=== PATIENT | female | born 1970 | race Caucasian/White ===

== ENCOUNTER 2016-11-10 14:08 | Emergency (ER) | payer MEDICARE, MEDICAID ==
--- NOTE | 2016-11-10 14:33 | EDM.PDOC ---
ED HPI GENERAL MEDICAL PROBLEM - General Chief Complaint: Lower Extremity Injury/Pain Stated Complaint: ANKLE INJURY left Time Seen by Provider: 11/10/16 14:13 Source of Information: Reports: Patient, EMS History Limitations: Reports: No Limitations - History of Present Illness INITIAL COMMENTS - FREE TEXT/NARRATIVE: Patient here with history of falling last night at her parents. She is unable to walk or support her weight today due to pain in her left ankle. History of prior femur fracture and left ankle surgical repair. History of muscular dystrophy. Has mild learning disability. Has history of HTN. Denies any abdominal surgeries. She denies headache, chest pain, SOB, change in LOC, no blood in stool, urine, emesis. No nausea or vomiting. Onset Date: 11/09/16 Onset Time: 20:00 Location: Reports: Lower Extremity, Left Quality: Reports: Ache, Sharp Severity: Moderate Improves with: Reports: Cold Therapy Worsens with: Reports: Movement Associated Symptoms: Reports: No Other Symptoms - Related Data Allergies Allergy/AdvReac Type Severity Reaction Status Date / Time No Known Allergies Allergy Verified 11/10/16 14:20 Home Meds: Home Meds Ergocalciferol (Vitamin D2) [Vitamin D] 400 unit PO BID 11/10/16 [History] Fluticasone Propionate [Flonase] 2 dose NASBOTH DAILY 11/10/16 [History] Ibuprofen 200 mg PO Q4H PRN 11/10/16 [History] Loratadine [Claritin] 10 mg PO DAILY 11/10/16 [History] Losartan [Cozaar] 50 mg PO DAILY 11/10/16 [History] Multivitamin [Multivitamins] 1 each PO DAILY 11/10/16 [History] Triamterene/Hydrochlorothiazid [Triamterene-HCTZ 37.5-25 MG] 1 each PO DAILY [History] Review of Systems - Review of Systems Review Of Systems: See Below Constitutional: Reports: No Symptoms Eyes: Reports: No Symptoms Ears: Reports: No Symptoms Nose: Reports: No Symptoms Mouth/Throat: Reports: No Symptoms Respiratory: Reports: No Symptoms Cardiovascular: Reports: No Symptoms GI/Abdominal: Reports: No Symptoms Genitourinary: Reports: No Symptoms Musculoskeletal: Reports: Leg Pain Skin: Reports: Bruising (left ankle) Neurological: Reports: No Symptoms Psychiatric: Reports: No Symptoms Trauma Exam - Physical Exam Exam: See Below Exam Limited By: No Limitations General Appearance: Reports: Alert, WD/WN, No Apparent Distress Head: Reports: Atraumatic, Normocephalic Neck: Reports: Non-Tender, Full Range of Motion, Normal Alignment, Normal Inspection Respiratory Exam: Reports: No Respiratory Distress, Lungs Clear, Normal Breath Sounds Cardiovascular: Reports: Normal Peripheral Pulses, Regular Rate, Rhythm, No Edema GI/Abdominal: Reports: Normal Bowel Sounds, Soft, Non-Tender Back: Reports: Full Range of Motion Extremities: Joint Effusion, Pain with Movement, Unable to Bear Weight (left ankle) Neurologic: Reports: epic ambulatory specialists II-XII nml As Tested, No Motor/Sensory Deficits, Alert , Normal Mood/Affect, Oriented x 3 - [place] Coma Score Best Eye Response ([place]): (4) Open Spontaneously Best Verbal Response ([place]): (5) Oriented Best Motor Response ([place]): (6) Obeys Commands Course - Vital Signs Last Recorded V/S: Last Vital Signs Temp 37.8 C 11/10/16 14:08 Pulse 100 11/10/16 14:08 Resp 18 11/10/16 14:08 BP 163/62 H 11/10/16 14:08 Pulse Ox 100 11/10/16 14:08 - Orders/Labs/Meds Orders: Active Orders 24 hr Category Date Time Status Patient Status [ADT] Routine ADT 11/10/16 14:33 Cancelled Ankle Min 3V Lt [CR] Stat Exams 11/10/16 14:14 Taken - Re-Assessments/Exams Free Text/Narrative Re-Assessment/Exam: 11/10/16 15:41 Drs. Moe and Cyndi contacted regarding patient. [facility] would accept for ortho, and Cyndi will see in the ED upon arrival for reduction and splinting. Surgery likely Departure - Departure Time of Disposition: 15:45 Disposition: DC/Tfer to Other 70 Condition: good Clinical Impression: Bimalleolar fracture of left ankle, Subluxation of left ankle joint, initial encounter - Discharge Information Forms: Interfacility Transfer EMTALA - My Orders Last 24 Hours: My Active Orders 11/10/16 14:14 Ankle Min 3V Lt [CR] Stat 11/10/16 14:33 Patient Status [ADT] Routine (Cancelled) - Assessment/Plan Last 24 Hours: My Active Orders 11/10/16 14:14 Ankle Min 3V Lt [CR] Stat 11/10/16 14:33 Patient Status [ADT] Routine (Cancelled)
[2016-11-10 15:50] VITALS: BP 143/62
== END 2016-11-10 16:20 | disposition other institution (70) ==
LOC: VM.ED 14:08
DX: S82.842A Displaced bimalleolar fracture of left lower leg, initial encounter for closed fracture (principal); S93.02XA Subluxation of left ankle joint, initial encounter; I10 Essential (primary) hypertension; G71.0 Muscular dystrophy; Z79.899 Other long term (current) drug therapy; X58.XXXA Exposure to other specified factors, initial encounter
CPT/HCPCS: 73610-LT; 99283-GF; 99285

== ENCOUNTER 2022-07-17 11:18 | Emergency (ER) | payer MEDICARE, MEDICAID | END 2022-07-17 13:55 | disposition home or self-care (01) | LOC: VM.ED 11:18 → MERGE 11:18 → VM.ED 13:55 | DX: R41.82 Altered mental status, unspecified (principal); I10 Essential (primary) hypertension; Z79.899 Other long term (current) drug therapy | CPT/HCPCS: 36415; 80053; 81001; 85025; 99284 ==

== ENCOUNTER 2022-12-27 23:50 | Emergency (ER) | payer MEDICARE, MEDICAID | END 2022-12-28 03:40 | disposition home or self-care (01) | LOC: VM.ED 23:50 | DX: S82.031A Displaced transverse fracture of right patella, initial encounter for closed fracture (principal); I10 Essential (primary) hypertension; E11.9 Type 2 diabetes mellitus without complications; Z79.899 Other long term (current) drug therapy; X50.1XXA Overexertion from prolonged static or awkward postures, initial encounter | CPT/HCPCS: 73560-RT; 99283 ==

== ENCOUNTER 2023-01-15 11:57 | Inpatient (IN) | payer MEDICARE, MEDICAID ==
[2023-01-15] MEDS ORDERED: Polyethylene Glycol 3350 Powder 17 GM Packet PO PRN (16:11)
[2023-01-15] MEDS ORDERED: Naloxone 0.4 MG/ML SDV NAS PRN (16:11)
[2023-01-15] MEDS ORDERED: Ibuprofen 200 MG Tab PO PRN (16:20)
[2023-01-15] MEDS: oxyCODONE 5 MG Tab (OWN SUPPLY) PO PRN ×2 (17:04→20:56)
[2023-01-15] MEDS: Losartan 50 MG Tab (OWN SUPPLY) PO SCH (17:06)
[2023-01-15] MEDS: TRIAMTERENE PO SCH (17:06)
[2023-01-15] MEDS: HYDROCHLOROTHIAZIDE PO SCH (17:06)
[2023-01-15] MEDS: LORATADINE 10 MG PO SCH (17:07)
[2023-01-15] MEDS: metFORMIN 500 MG Tab (OWN SUPPLY) PO SCH (17:49)
[2023-01-15] MEDS: Sennosides/Docusate Sodium 50-8.6 MG Tab PO SCH (20:56)
[2023-01-15] MEDS: EZETIMIBE 10 MG PO SCH (20:56)
[2023-01-16] MEDS: oxyCODONE 5 MG Tab (OWN SUPPLY) PO PRN ×4 (01:36→20:55)
[2023-01-16] MEDS: metFORMIN 500 MG Tab (OWN SUPPLY) PO SCH ×2 (12:26→18:21)
[2023-01-16] MEDS: FLUTICASONE PROPIONATE NASBOTH SCH (12:27)
[2023-01-16] MEDS: Aspirin 325 MG Tab.EC PO SCH (12:32)
[2023-01-16] MEDS: Cholecalciferol (Vitamin D3) 10 MCG Tab PO SCH (12:32)
[2023-01-16] MEDS: Calcium Carbonate 750 MG Tab.Chew PO SCH (12:32)
[2023-01-16] MEDS: Sennosides/Docusate Sodium 50-8.6 MG Tab PO SCH ×2 (12:32→20:55)
[2023-01-16] MEDS: Multivitamin Tab PO SCH (12:32)
[2023-01-16] MEDS: HYDROCHLOROTHIAZIDE PO SCH (18:21)
[2023-01-16] MEDS: Losartan 50 MG Tab (OWN SUPPLY) PO SCH (18:21)
[2023-01-16] MEDS: TRIAMTERENE PO SCH (18:21)
[2023-01-16] MEDS: LORATADINE 10 MG PO SCH (18:22)
[2023-01-16] MEDS: EZETIMIBE 10 MG PO SCH (23:47)
[2023-01-17] MEDS: oxyCODONE 5 MG Tab (OWN SUPPLY) PO PRN ×3 (04:55→20:11)
[2023-01-17] MEDS: FLUTICASONE PROPIONATE NASBOTH SCH (12:15)
[2023-01-17] MEDS: Sennosides/Docusate Sodium 50-8.6 MG Tab PO SCH ×2 (12:16→20:10)
[2023-01-17] MEDS: Cholecalciferol (Vitamin D3) 10 MCG Tab PO SCH (12:16)
[2023-01-17] MEDS: Calcium Carbonate 750 MG Tab.Chew PO SCH (12:16)
[2023-01-17] MEDS: metFORMIN 500 MG Tab (OWN SUPPLY) PO SCH ×2 (12:16→18:07)
[2023-01-17] MEDS: Multivitamin Tab PO SCH (12:16)
[2023-01-17] MEDS: Aspirin 325 MG Tab.EC PO SCH (12:16)
[2023-01-17] MEDS: HYDROCHLOROTHIAZIDE PO SCH (18:07)
[2023-01-17] MEDS: Losartan 50 MG Tab (OWN SUPPLY) PO SCH (18:07)
[2023-01-17] MEDS: TRIAMTERENE PO SCH (18:07)
[2023-01-17] MEDS: LORATADINE 10 MG PO SCH (18:07)
[2023-01-17] MEDS: EZETIMIBE 10 MG PO SCH (20:11)
[2023-01-18] MEDS: FLUTICASONE PROPIONATE NASBOTH SCH (12:21)
[2023-01-18] MEDS: Calcium Carbonate 750 MG Tab.Chew PO SCH (12:22)
[2023-01-18] MEDS: Cholecalciferol (Vitamin D3) 10 MCG Tab PO SCH (12:22)
[2023-01-18] MEDS: Multivitamin Tab PO SCH (12:22)
[2023-01-18] MEDS: metFORMIN 500 MG Tab (OWN SUPPLY) PO SCH ×2 (12:22→18:14)
[2023-01-18] MEDS: Aspirin 325 MG Tab.EC PO SCH (12:22)
[2023-01-18] MEDS: oxyCODONE 5 MG Tab (OWN SUPPLY) PO PRN ×2 (12:23→21:16)
[2023-01-18] MEDS: Sennosides/Docusate Sodium 50-8.6 MG Tab PO SCH ×2 (12:23→22:39)
[2023-01-18] MEDS: Losartan 50 MG Tab (OWN SUPPLY) PO SCH (18:13)
[2023-01-18] MEDS: LORATADINE 10 MG PO SCH (18:14)
[2023-01-18] MEDS: TRIAMTERENE PO SCH (18:14)
[2023-01-18] MEDS: HYDROCHLOROTHIAZIDE PO SCH (18:14)
[2023-01-18] MEDS: EZETIMIBE 10 MG PO SCH (21:16)
[2023-01-19] MEDS: Cholecalciferol (Vitamin D3) 10 MCG Tab PO SCH (12:02)
[2023-01-19] MEDS: Multivitamin Tab PO SCH (12:03)
[2023-01-19] MEDS: Aspirin 325 MG Tab.EC PO SCH (12:03)
[2023-01-19] MEDS: Sennosides/Docusate Sodium 50-8.6 MG Tab PO SCH ×2 (12:03→20:03)
[2023-01-19] MEDS: FLUTICASONE PROPIONATE NASBOTH SCH (12:05)
[2023-01-19] MEDS: metFORMIN 500 MG Tab (OWN SUPPLY) PO SCH ×2 (12:06→17:22)
[2023-01-19] MEDS: Calcium Carbonate 750 MG Tab.Chew PO SCH (12:07)
[2023-01-19] MEDS: LORATADINE 10 MG PO SCH (17:20)
[2023-01-19] MEDS: TRIAMTERENE PO SCH (17:20)
[2023-01-19] MEDS: HYDROCHLOROTHIAZIDE PO SCH (17:20)
[2023-01-19] MEDS: Losartan 50 MG Tab (OWN SUPPLY) PO SCH (17:21)
[2023-01-19] MEDS: EZETIMIBE 10 MG PO SCH (20:03)
[2023-01-19] MEDS: Acetaminophen 325 MG Tab PO PRN (20:04)
[2023-01-19] MEDS: oxyCODONE 5 MG Tab (OWN SUPPLY) PO PRN (23:24)
[2023-01-20] MEDS: Multivitamin Tab PO SCH (11:39)
[2023-01-20] MEDS: Aspirin 325 MG Tab.EC PO SCH (11:39)
[2023-01-20] MEDS: Sennosides/Docusate Sodium 50-8.6 MG Tab PO SCH ×2 (11:40→20:45)
[2023-01-20] MEDS: FLUTICASONE PROPIONATE NASBOTH SCH (11:40)
[2023-01-20] MEDS: Cholecalciferol (Vitamin D3) 10 MCG Tab PO SCH (11:40)
[2023-01-20] MEDS: Calcium Carbonate 750 MG Tab.Chew PO SCH (11:41)
[2023-01-20] MEDS: metFORMIN 500 MG Tab (OWN SUPPLY) PO SCH ×2 (11:41→18:33)
[2023-01-20] MEDS: oxyCODONE 5 MG Tab (OWN SUPPLY) PO PRN ×2 (11:44→23:20)
[2023-01-20] MEDS: Losartan 50 MG Tab (OWN SUPPLY) PO SCH (18:33)
[2023-01-20] MEDS: HYDROCHLOROTHIAZIDE PO SCH (18:33)
[2023-01-20] MEDS: LORATADINE 10 MG PO SCH (18:33)
[2023-01-20] MEDS: TRIAMTERENE PO SCH (18:33)
[2023-01-20] MEDS: EZETIMIBE 10 MG PO SCH (20:44)
[2023-01-21] MEDS: FLUTICASONE PROPIONATE NASBOTH SCH (12:58)
[2023-01-21] MEDS: Calcium Carbonate 750 MG Tab.Chew PO SCH (12:58)
[2023-01-21] MEDS: Multivitamin Tab PO SCH (12:59)
[2023-01-21] MEDS: Aspirin 325 MG Tab.EC PO SCH (12:59)
[2023-01-21] MEDS: Sennosides/Docusate Sodium 50-8.6 MG Tab PO SCH ×2 (12:59→20:17)
[2023-01-21] MEDS: Cholecalciferol (Vitamin D3) 10 MCG Tab PO SCH (12:59)
[2023-01-21] MEDS: metFORMIN 500 MG Tab (OWN SUPPLY) PO SCH ×2 (12:59→18:33)
[2023-01-21] MEDS: HYDROCHLOROTHIAZIDE PO SCH (18:33)
[2023-01-21] MEDS: TRIAMTERENE PO SCH (18:33)
[2023-01-21] MEDS: LORATADINE 10 MG PO SCH (18:33)
[2023-01-21] MEDS: Losartan 50 MG Tab (OWN SUPPLY) PO SCH (18:34)
[2023-01-21] MEDS: Acetaminophen 325 MG Tab PO PRN (20:17)
[2023-01-21] MEDS: EZETIMIBE 10 MG PO SCH (20:17)
[2023-01-22] MEDS: Acetaminophen 325 MG Tab PO PRN ×3 (05:10→20:27)
[2023-01-22] MEDS: Multivitamin Tab PO SCH (11:10)
[2023-01-22] MEDS: Calcium Carbonate 750 MG Tab.Chew PO SCH (11:11)
[2023-01-22] MEDS: Cholecalciferol (Vitamin D3) 10 MCG Tab PO SCH (11:11)
[2023-01-22] MEDS: metFORMIN 500 MG Tab (OWN SUPPLY) PO SCH ×2 (11:11→18:02)
[2023-01-22] MEDS: Aspirin 325 MG Tab.EC PO SCH (11:11)
[2023-01-22] MEDS: FLUTICASONE PROPIONATE NASBOTH SCH (11:11)
[2023-01-22] MEDS: Sennosides/Docusate Sodium 50-8.6 MG Tab PO SCH ×2 (11:11→20:26)
[2023-01-22] MEDS: Losartan 50 MG Tab (OWN SUPPLY) PO SCH (18:01)
[2023-01-22] MEDS: LORATADINE 10 MG PO SCH (18:01)
[2023-01-22] MEDS: HYDROCHLOROTHIAZIDE PO SCH (18:02)
[2023-01-22] MEDS: TRIAMTERENE PO SCH (18:02)
[2023-01-22] MEDS: EZETIMIBE 10 MG PO SCH (20:25)
[2023-01-23] MEDS: metFORMIN 500 MG Tab (OWN SUPPLY) PO SCH ×2 (12:03→18:18)
[2023-01-23] MEDS: Acetaminophen 325 MG Tab PO PRN ×2 (12:04→20:29)
[2023-01-23] MEDS: Multivitamin Tab PO SCH (12:05)
[2023-01-23] MEDS: Cholecalciferol (Vitamin D3) 10 MCG Tab PO SCH (12:05)
[2023-01-23] MEDS: Aspirin 325 MG Tab.EC PO SCH (12:05)
[2023-01-23] MEDS: Calcium Carbonate 750 MG Tab.Chew PO SCH (12:06)
[2023-01-23] MEDS: FLUTICASONE PROPIONATE NASBOTH SCH (12:06)
[2023-01-23] MEDS: Sennosides/Docusate Sodium 50-8.6 MG Tab PO SCH ×2 (12:11→20:29)
[2023-01-23] MEDS: LORATADINE 10 MG PO SCH (18:18)
[2023-01-23] MEDS: HYDROCHLOROTHIAZIDE PO SCH (18:18)
[2023-01-23] MEDS: TRIAMTERENE PO SCH (18:18)
[2023-01-23] MEDS: Losartan 50 MG Tab (OWN SUPPLY) PO SCH (18:20)
[2023-01-23] MEDS: EZETIMIBE 10 MG PO SCH (20:30)
[2023-01-24] MEDS: FLUTICASONE PROPIONATE NASBOTH SCH (12:12)
[2023-01-24] MEDS: Calcium Carbonate 750 MG Tab.Chew PO SCH (12:13)
[2023-01-24] MEDS: metFORMIN 500 MG Tab (OWN SUPPLY) PO SCH ×2 (12:13→18:30)
[2023-01-24] MEDS: Multivitamin Tab PO SCH (12:13)
[2023-01-24] MEDS: Cholecalciferol (Vitamin D3) 10 MCG Tab PO SCH (12:13)
[2023-01-24] MEDS: Aspirin 325 MG Tab.EC PO SCH (12:13)
[2023-01-24] MEDS: Sennosides/Docusate Sodium 50-8.6 MG Tab PO SCH ×2 (12:13→20:11)
[2023-01-24] MEDS: LORATADINE 10 MG PO SCH (18:30)
[2023-01-24] MEDS: HYDROCHLOROTHIAZIDE PO SCH (18:31)
[2023-01-24] MEDS: TRIAMTERENE PO SCH (18:31)
[2023-01-24] MEDS: Losartan 50 MG Tab (OWN SUPPLY) PO SCH (18:35)
[2023-01-24] MEDS: EZETIMIBE 10 MG PO SCH (20:10)
[2023-01-24] MEDS: Acetaminophen 325 MG Tab PO PRN (21:42)
[2023-01-25] MEDS: Aspirin 325 MG Tab.EC PO SCH (12:20)
[2023-01-25] MEDS: Cholecalciferol (Vitamin D3) 10 MCG Tab PO SCH (12:20)
[2023-01-25] MEDS: Calcium Carbonate 750 MG Tab.Chew PO SCH (12:21)
[2023-01-25] MEDS: metFORMIN 500 MG Tab (OWN SUPPLY) PO SCH ×2 (12:21→18:15)
[2023-01-25] MEDS: FLUTICASONE PROPIONATE NASBOTH SCH (12:21)
[2023-01-25] MEDS: Multivitamin Tab PO SCH (12:21)
[2023-01-25] MEDS: Sennosides/Docusate Sodium 50-8.6 MG Tab PO SCH ×2 (12:21→20:57)
[2023-01-25] MEDS: Losartan 50 MG Tab (OWN SUPPLY) PO SCH (18:15)
[2023-01-25] MEDS: HYDROCHLOROTHIAZIDE PO SCH (18:15)
[2023-01-25] MEDS: LORATADINE 10 MG PO SCH (18:15)
[2023-01-25] MEDS: TRIAMTERENE PO SCH (18:15)
[2023-01-25] MEDS: EZETIMIBE 10 MG PO SCH (20:57)
[2023-01-25] MEDS: Acetaminophen 325 MG Tab PO PRN (20:57)
[2023-01-26] MEDS: Calcium Carbonate 750 MG Tab.Chew PO SCH (11:12)
[2023-01-26] MEDS: FLUTICASONE PROPIONATE NASBOTH SCH (11:12)
[2023-01-26] MEDS: Multivitamin Tab PO SCH (11:13)
[2023-01-26] MEDS: metFORMIN 500 MG Tab (OWN SUPPLY) PO SCH ×2 (11:13→18:22)
[2023-01-26] MEDS: Cholecalciferol (Vitamin D3) 10 MCG Tab PO SCH (11:13)
[2023-01-26] MEDS: Sennosides/Docusate Sodium 50-8.6 MG Tab PO SCH ×2 (11:13→21:42)
[2023-01-26] MEDS: Aspirin 325 MG Tab.EC PO SCH (11:13)
[2023-01-26] MEDS: HYDROCHLOROTHIAZIDE PO SCH (18:22)
[2023-01-26] MEDS: Losartan 50 MG Tab (OWN SUPPLY) PO SCH (18:22)
[2023-01-26] MEDS: TRIAMTERENE PO SCH (18:22)
[2023-01-26] MEDS: LORATADINE 10 MG PO SCH (18:22)
[2023-01-26] MEDS: EZETIMIBE 10 MG PO SCH (21:42)
[2023-01-26] MEDS: Acetaminophen 325 MG Tab PO PRN (21:45)
[2023-01-27] MEDS: Calcium Carbonate 750 MG Tab.Chew PO SCH (13:29)
[2023-01-27] MEDS: Cholecalciferol (Vitamin D3) 10 MCG Tab PO SCH (13:30)
[2023-01-27] MEDS: Multivitamin Tab PO SCH (13:30)
[2023-01-27] MEDS: Sennosides/Docusate Sodium 50-8.6 MG Tab PO SCH ×2 (13:30→20:40)
[2023-01-27] MEDS: Aspirin 325 MG Tab.EC PO SCH (13:30)
[2023-01-27] MEDS: metFORMIN 500 MG Tab (OWN SUPPLY) PO SCH ×2 (13:30→17:37)
[2023-01-27] MEDS: FLUTICASONE PROPIONATE NASBOTH SCH (13:31)
[2023-01-27] MEDS: LORATADINE 10 MG PO SCH (17:37)
[2023-01-27] MEDS: Losartan 50 MG Tab (OWN SUPPLY) PO SCH (17:38)
[2023-01-27] MEDS: TRIAMTERENE PO SCH (17:38)
[2023-01-27] MEDS: HYDROCHLOROTHIAZIDE PO SCH (17:38)
[2023-01-27] MEDS: EZETIMIBE 10 MG PO SCH (20:39)
[2023-01-27] MEDS: Acetaminophen 325 MG Tab PO PRN (20:40)
[2023-01-28] MEDS: Aspirin 325 MG Tab.EC PO SCH (11:52)
[2023-01-28] MEDS: Cholecalciferol (Vitamin D3) 10 MCG Tab PO SCH (11:52)
[2023-01-28] MEDS: FLUTICASONE PROPIONATE NASBOTH SCH (11:53)
[2023-01-28] MEDS: Calcium Carbonate 750 MG Tab.Chew PO SCH (11:53)
[2023-01-28] MEDS: Multivitamin Tab PO SCH (11:54)
[2023-01-28] MEDS: Sennosides/Docusate Sodium 50-8.6 MG Tab PO SCH ×3 (11:54→20:30)
[2023-01-28] MEDS: metFORMIN 500 MG Tab (OWN SUPPLY) PO SCH ×2 (11:55→17:50)
[2023-01-28] MEDS: HYDROCHLOROTHIAZIDE PO SCH (17:50)
[2023-01-28] MEDS: LORATADINE 10 MG PO SCH (17:50)
[2023-01-28] MEDS: Losartan 50 MG Tab (OWN SUPPLY) PO SCH (17:50)
[2023-01-28] MEDS: TRIAMTERENE PO SCH (17:50)
[2023-01-28] MEDS: EZETIMIBE 10 MG PO SCH (20:34)
[2023-01-28] MEDS: Acetaminophen 325 MG Tab PO PRN (22:02)
[2023-01-29] MEDS: Cholecalciferol (Vitamin D3) 10 MCG Tab PO SCH (12:18)
[2023-01-29] MEDS: Multivitamin Tab PO SCH (12:18)
[2023-01-29] MEDS: Sennosides/Docusate Sodium 50-8.6 MG Tab PO SCH ×2 (12:18→21:21)
[2023-01-29] MEDS: Calcium Carbonate 750 MG Tab.Chew PO SCH (12:19)
[2023-01-29] MEDS: Aspirin 325 MG Tab.EC PO SCH (12:19)
[2023-01-29] MEDS: FLUTICASONE PROPIONATE NASBOTH SCH (12:20)
[2023-01-29] MEDS: metFORMIN 500 MG Tab (OWN SUPPLY) PO SCH ×2 (12:21→17:33)
[2023-01-29] MEDS: Losartan 50 MG Tab (OWN SUPPLY) PO SCH (17:34)
[2023-01-29] MEDS: LORATADINE 10 MG PO SCH (17:35)
[2023-01-29] MEDS: TRIAMTERENE PO SCH (17:35)
[2023-01-29] MEDS: HYDROCHLOROTHIAZIDE PO SCH (17:35)
[2023-01-29] MEDS: EZETIMIBE 10 MG PO SCH (20:24)
[2023-01-29] MEDS: Acetaminophen 325 MG Tab PO PRN (20:24)
[2023-01-30] MEDS: Sennosides/Docusate Sodium 50-8.6 MG Tab PO SCH ×2 (12:28→20:20)
[2023-01-30] MEDS: Aspirin 325 MG Tab.EC PO SCH (12:28)
[2023-01-30] MEDS: Cholecalciferol (Vitamin D3) 10 MCG Tab PO SCH (12:28)
[2023-01-30] MEDS: Multivitamin Tab PO SCH (12:28)
[2023-01-30] MEDS: metFORMIN 500 MG Tab (OWN SUPPLY) PO SCH ×2 (12:31→18:35)
[2023-01-30] MEDS: FLUTICASONE PROPIONATE NASBOTH SCH (12:32)
[2023-01-30] MEDS: Calcium Carbonate 750 MG Tab.Chew PO SCH (12:32)
[2023-01-30] MEDS: LORATADINE 10 MG PO SCH (18:35)
[2023-01-30] MEDS: Losartan 50 MG Tab (OWN SUPPLY) PO SCH (18:35)
[2023-01-30] MEDS: TRIAMTERENE PO SCH (18:35)
[2023-01-30] MEDS: HYDROCHLOROTHIAZIDE PO SCH (18:35)
[2023-01-30] MEDS: EZETIMIBE 10 MG PO SCH (20:20)
[2023-01-31] MEDS: FLUTICASONE PROPIONATE NASBOTH SCH (12:34)
[2023-01-31] MEDS: metFORMIN 500 MG Tab (OWN SUPPLY) PO SCH ×2 (12:35→18:36)
[2023-01-31] MEDS: Calcium Carbonate 750 MG Tab.Chew PO SCH (12:35)
[2023-01-31] MEDS: Multivitamin Tab PO SCH (12:35)
[2023-01-31] MEDS: Aspirin 325 MG Tab.EC PO SCH (12:35)
[2023-01-31] MEDS: Sennosides/Docusate Sodium 50-8.6 MG Tab PO SCH ×2 (12:36→21:47)
[2023-01-31] MEDS: Cholecalciferol (Vitamin D3) 10 MCG Tab PO SCH (12:36)
[2023-01-31] MEDS: HYDROCHLOROTHIAZIDE PO SCH (18:36)
[2023-01-31] MEDS: TRIAMTERENE PO SCH (18:36)
[2023-01-31] MEDS: LORATADINE 10 MG PO SCH (18:36)
[2023-01-31] MEDS: Losartan 50 MG Tab (OWN SUPPLY) PO SCH (18:36)
[2023-01-31] MEDS: Acetaminophen 325 MG Tab PO PRN (21:18)
[2023-01-31] MEDS: EZETIMIBE 10 MG PO SCH (21:18)
[2023-02-01] MEDS: FLUTICASONE PROPIONATE NASBOTH SCH (12:28)
[2023-02-01] MEDS: Multivitamin Tab PO SCH (12:29)
[2023-02-01] MEDS: Calcium Carbonate 750 MG Tab.Chew PO SCH (12:29)
[2023-02-01] MEDS: Sennosides/Docusate Sodium 50-8.6 MG Tab PO SCH ×2 (12:29→20:56)
[2023-02-01] MEDS: Aspirin 325 MG Tab.EC PO SCH (12:29)
[2023-02-01] MEDS: Cholecalciferol (Vitamin D3) 10 MCG Tab PO SCH (12:29)
[2023-02-01] MEDS: metFORMIN 500 MG Tab (OWN SUPPLY) PO SCH ×2 (12:29→18:27)
[2023-02-01] MEDS: Losartan 50 MG Tab (OWN SUPPLY) PO SCH (18:27)
[2023-02-01] MEDS: LORATADINE 10 MG PO SCH (18:27)
[2023-02-01] MEDS: HYDROCHLOROTHIAZIDE PO SCH (18:27)
[2023-02-01] MEDS: TRIAMTERENE PO SCH (18:27)
[2023-02-01] MEDS: EZETIMIBE 10 MG PO SCH (20:56)
[2023-02-01] MEDS: Acetaminophen 325 MG Tab PO PRN (20:56)
[2023-02-02] MEDS: Acetaminophen 325 MG Tab PO PRN ×2 (06:50→21:08)
[2023-02-02] MEDS: Aspirin 325 MG Tab.EC PO SCH (11:51)
[2023-02-02] MEDS: Cholecalciferol (Vitamin D3) 10 MCG Tab PO SCH (11:51)
[2023-02-02] MEDS: FLUTICASONE PROPIONATE NASBOTH SCH (11:51)
[2023-02-02] MEDS: Calcium Carbonate 750 MG Tab.Chew PO SCH (11:52)
[2023-02-02] MEDS: Sennosides/Docusate Sodium 50-8.6 MG Tab PO SCH ×2 (11:52→21:08)
[2023-02-02] MEDS: Multivitamin Tab PO SCH (11:52)
[2023-02-02] MEDS: metFORMIN 500 MG Tab (OWN SUPPLY) PO SCH ×2 (11:53→18:12)
[2023-02-02] MEDS: HYDROCHLOROTHIAZIDE PO SCH (18:11)
[2023-02-02] MEDS: TRIAMTERENE PO SCH (18:11)
[2023-02-02] MEDS: Losartan 50 MG Tab (OWN SUPPLY) PO SCH (18:12)
[2023-02-02] MEDS: LORATADINE 10 MG PO SCH (18:12)
[2023-02-02] MEDS: EZETIMIBE 10 MG PO SCH (21:07)
[2023-02-03] MEDS: Cholecalciferol (Vitamin D3) 10 MCG Tab PO SCH (11:36)
[2023-02-03] MEDS: Sennosides/Docusate Sodium 50-8.6 MG Tab PO SCH ×2 (11:36→21:46)
[2023-02-03] MEDS: Multivitamin Tab PO SCH (11:36)
[2023-02-03] MEDS: Aspirin 325 MG Tab.EC PO SCH (11:36)
[2023-02-03] MEDS: FLUTICASONE PROPIONATE NASBOTH SCH (11:37)
[2023-02-03] MEDS: Calcium Carbonate 750 MG Tab.Chew PO SCH (11:38)
[2023-02-03] MEDS: metFORMIN 500 MG Tab (OWN SUPPLY) PO SCH ×2 (11:38→18:15)
[2023-02-03] MEDS: Losartan 50 MG Tab (OWN SUPPLY) PO SCH (18:14)
[2023-02-03] MEDS: TRIAMTERENE PO SCH (18:14)
[2023-02-03] MEDS: HYDROCHLOROTHIAZIDE PO SCH (18:14)
[2023-02-03] MEDS: LORATADINE 10 MG PO SCH (18:14)
[2023-02-03] MEDS: oxyCODONE 5 MG Tab (OWN SUPPLY) PO PRN (20:40)
[2023-02-03] MEDS: EZETIMIBE 10 MG PO SCH (20:40)
[2023-02-04] MEDS: Cholecalciferol (Vitamin D3) 10 MCG Tab PO SCH (11:28)
[2023-02-04] MEDS: Sennosides/Docusate Sodium 50-8.6 MG Tab PO SCH ×2 (11:28→21:16)
[2023-02-04] MEDS: Multivitamin Tab PO SCH (11:28)
[2023-02-04] MEDS: Aspirin 325 MG Tab.EC PO SCH (11:29)
[2023-02-04] MEDS: FLUTICASONE PROPIONATE NASBOTH SCH (11:31)
[2023-02-04] MEDS: Calcium Carbonate 750 MG Tab.Chew PO SCH (11:33)
[2023-02-04] MEDS: metFORMIN 500 MG Tab (OWN SUPPLY) PO SCH ×2 (11:33→17:57)
[2023-02-04] MEDS: Losartan 50 MG Tab (OWN SUPPLY) PO SCH (17:57)
[2023-02-04] MEDS: LORATADINE 10 MG PO SCH (17:58)
[2023-02-04] MEDS: TRIAMTERENE PO SCH (17:58)
[2023-02-04] MEDS: HYDROCHLOROTHIAZIDE PO SCH (17:58)
[2023-02-04] MEDS: Acetaminophen 325 MG Tab PO PRN (21:16)
[2023-02-04] MEDS: EZETIMIBE 10 MG PO SCH (21:16)
[2023-02-05] MEDS: Calcium Carbonate 750 MG Tab.Chew PO SCH (11:29)
[2023-02-05] MEDS: Aspirin 325 MG Tab.EC PO SCH (11:30)
[2023-02-05] MEDS: FLUTICASONE PROPIONATE NASBOTH SCH (11:30)
[2023-02-05] MEDS: Cholecalciferol (Vitamin D3) 10 MCG Tab PO SCH (11:30)
[2023-02-05] MEDS: Sennosides/Docusate Sodium 50-8.6 MG Tab PO SCH ×2 (11:30→21:54)
[2023-02-05] MEDS: Multivitamin Tab PO SCH (11:30)
[2023-02-05] MEDS: metFORMIN 500 MG Tab (OWN SUPPLY) PO SCH ×2 (11:31→17:59)
[2023-02-05] MEDS: LORATADINE 10 MG PO SCH (17:59)
[2023-02-05] MEDS: HYDROCHLOROTHIAZIDE PO SCH (17:59)
[2023-02-05] MEDS: Losartan 50 MG Tab (OWN SUPPLY) PO SCH (17:59)
[2023-02-05] MEDS: TRIAMTERENE PO SCH (17:59)
[2023-02-05] MEDS: EZETIMIBE 10 MG PO SCH (21:54)
[2023-02-05] MEDS: Acetaminophen 325 MG Tab PO PRN (21:54)
[2023-02-06] MEDS: Cholecalciferol (Vitamin D3) 10 MCG Tab PO SCH (12:06)
[2023-02-06] MEDS: FLUTICASONE PROPIONATE NASBOTH SCH (12:06)
[2023-02-06] MEDS: Calcium Carbonate 750 MG Tab.Chew PO SCH (12:06)
[2023-02-06] MEDS: metFORMIN 500 MG Tab (OWN SUPPLY) PO SCH ×2 (12:06→18:56)
[2023-02-06] MEDS: Aspirin 325 MG Tab.EC PO SCH (12:06)
[2023-02-06] MEDS: Sennosides/Docusate Sodium 50-8.6 MG Tab PO SCH ×2 (12:06→20:58)
[2023-02-06] MEDS: Multivitamin Tab PO SCH (12:06)
[2023-02-06] MEDS: HYDROCHLOROTHIAZIDE PO SCH (18:56)
[2023-02-06] MEDS: LORATADINE 10 MG PO SCH (18:56)
[2023-02-06] MEDS: TRIAMTERENE PO SCH (18:56)
[2023-02-06] MEDS: Losartan 50 MG Tab (OWN SUPPLY) PO SCH (18:56)
[2023-02-06] MEDS: EZETIMIBE 10 MG PO SCH (20:57)
[2023-02-06] MEDS: Acetaminophen 325 MG Tab PO PRN (20:58)
[2023-02-07] MEDS: Multivitamin Tab PO SCH (12:30)
[2023-02-07] MEDS: Aspirin 325 MG Tab.EC PO SCH (12:30)
[2023-02-07] MEDS: Cholecalciferol (Vitamin D3) 10 MCG Tab PO SCH (12:30)
[2023-02-07] MEDS: Sennosides/Docusate Sodium 50-8.6 MG Tab PO SCH ×2 (12:30→20:56)
[2023-02-07] MEDS: FLUTICASONE PROPIONATE NASBOTH SCH (12:31)
[2023-02-07] MEDS: Calcium Carbonate 750 MG Tab.Chew PO SCH (12:31)
[2023-02-07] MEDS: metFORMIN 500 MG Tab (OWN SUPPLY) PO SCH ×2 (12:33→17:45)
[2023-02-07] MEDS: HYDROCHLOROTHIAZIDE PO SCH (17:45)
[2023-02-07] MEDS: TRIAMTERENE PO SCH (17:45)
[2023-02-07] MEDS: LORATADINE 10 MG PO SCH (17:45)
[2023-02-07] MEDS: Losartan 50 MG Tab (OWN SUPPLY) PO SCH (17:45)
[2023-02-07] MEDS: EZETIMIBE 10 MG PO SCH (20:56)
[2023-02-08] MEDS: Acetaminophen 325 MG Tab PO PRN ×2 (02:23→21:10)
[2023-02-08] MEDS: metFORMIN 500 MG Tab (OWN SUPPLY) PO SCH ×2 (11:38→18:14)
[2023-02-08] MEDS: Multivitamin Tab PO SCH (11:39)
[2023-02-08] MEDS: Cholecalciferol (Vitamin D3) 10 MCG Tab PO SCH (11:39)
[2023-02-08] MEDS: FLUTICASONE PROPIONATE NASBOTH SCH (11:39)
[2023-02-08] MEDS: Aspirin 325 MG Tab.EC PO SCH (11:39)
[2023-02-08] MEDS: Sennosides/Docusate Sodium 50-8.6 MG Tab PO SCH ×2 (11:39→21:11)
[2023-02-08] MEDS: Calcium Carbonate 750 MG Tab.Chew PO SCH (11:39)
[2023-02-08] MEDS: TRIAMTERENE PO SCH (18:14)
[2023-02-08] MEDS: HYDROCHLOROTHIAZIDE PO SCH (18:14)
[2023-02-08] MEDS: LORATADINE 10 MG PO SCH (18:14)
[2023-02-08] MEDS: Losartan 50 MG Tab (OWN SUPPLY) PO SCH (18:14)
[2023-02-08] MEDS: EZETIMIBE 10 MG PO SCH (21:11)
[2023-02-09] MEDS: FLUTICASONE PROPIONATE NASBOTH SCH (11:02)
[2023-02-09] MEDS: metFORMIN 500 MG Tab (OWN SUPPLY) PO SCH ×2 (11:02→17:13)
[2023-02-09] MEDS: Calcium Carbonate 750 MG Tab.Chew PO SCH (11:04)
[2023-02-09] MEDS: Aspirin 325 MG Tab.EC PO SCH (11:04)
[2023-02-09] MEDS: Cholecalciferol (Vitamin D3) 10 MCG Tab PO SCH (11:04)
[2023-02-09] MEDS: Sennosides/Docusate Sodium 50-8.6 MG Tab PO SCH ×2 (11:04→20:34)
[2023-02-09] MEDS: Multivitamin Tab PO SCH (11:04)
[2023-02-09] MEDS: Losartan 50 MG Tab (OWN SUPPLY) PO SCH (17:13)
[2023-02-09] MEDS: LORATADINE 10 MG PO SCH (17:14)
[2023-02-09] MEDS: HYDROCHLOROTHIAZIDE PO SCH (17:14)
[2023-02-09] MEDS: TRIAMTERENE PO SCH (17:14)
[2023-02-09] MEDS: EZETIMIBE 10 MG PO SCH (20:33)
[2023-02-09] MEDS: Acetaminophen 325 MG Tab PO PRN (20:34)
[2023-02-10] MEDS: FLUTICASONE PROPIONATE NASBOTH SCH (12:25)
[2023-02-10] MEDS: metFORMIN 500 MG Tab (OWN SUPPLY) PO SCH ×2 (12:26→18:20)
[2023-02-10] MEDS: Calcium Carbonate 750 MG Tab.Chew PO SCH (12:26)
[2023-02-10] MEDS: Sennosides/Docusate Sodium 50-8.6 MG Tab PO SCH ×2 (12:26→21:26)
[2023-02-10] MEDS: Cholecalciferol (Vitamin D3) 10 MCG Tab PO SCH (12:26)
[2023-02-10] MEDS: Multivitamin Tab PO SCH (12:27)
[2023-02-10] MEDS: Aspirin 325 MG Tab.EC PO SCH (12:27)
[2023-02-10] MEDS: LORATADINE 10 MG PO SCH (18:19)
[2023-02-10] MEDS: Losartan 50 MG Tab (OWN SUPPLY) PO SCH (18:19)
[2023-02-10] MEDS: HYDROCHLOROTHIAZIDE PO SCH (18:20)
[2023-02-10] MEDS: TRIAMTERENE PO SCH (18:20)
[2023-02-10] MEDS: Acetaminophen 325 MG Tab PO PRN (21:26)
[2023-02-10] MEDS: EZETIMIBE 10 MG PO SCH (21:27)
[2023-02-11] MEDS: FLUTICASONE PROPIONATE NASBOTH SCH (11:21)
[2023-02-11] MEDS: Calcium Carbonate 750 MG Tab.Chew PO SCH (11:21)
[2023-02-11] MEDS: Sennosides/Docusate Sodium 50-8.6 MG Tab PO SCH ×2 (11:22→21:37)
[2023-02-11] MEDS: Multivitamin Tab PO SCH (11:22)
[2023-02-11] MEDS: Cholecalciferol (Vitamin D3) 10 MCG Tab PO SCH (11:22)
[2023-02-11] MEDS: metFORMIN 500 MG Tab (OWN SUPPLY) PO SCH ×2 (11:22→18:04)
[2023-02-11] MEDS: Aspirin 325 MG Tab.EC PO SCH (11:22)
[2023-02-11] MEDS: LORATADINE 10 MG PO SCH (18:03)
[2023-02-11] MEDS: Losartan 50 MG Tab (OWN SUPPLY) PO SCH (18:03)
[2023-02-11] MEDS: TRIAMTERENE PO SCH (18:04)
[2023-02-11] MEDS: HYDROCHLOROTHIAZIDE PO SCH (18:04)
[2023-02-11] MEDS: EZETIMIBE 10 MG PO SCH (21:37)
[2023-02-11] MEDS: Acetaminophen 325 MG Tab PO PRN (21:37)
[2023-02-12] MEDS: Cholecalciferol (Vitamin D3) 10 MCG Tab PO SCH (11:10)
[2023-02-12] MEDS: Sennosides/Docusate Sodium 50-8.6 MG Tab PO SCH ×2 (11:10→21:03)
[2023-02-12] MEDS: Multivitamin Tab PO SCH (11:10)
[2023-02-12] MEDS: Aspirin 325 MG Tab.EC PO SCH (11:10)
[2023-02-12] MEDS: FLUTICASONE PROPIONATE NASBOTH SCH (11:11)
[2023-02-12] MEDS: Calcium Carbonate 750 MG Tab.Chew PO SCH (11:11)
[2023-02-12] MEDS: metFORMIN 500 MG Tab (OWN SUPPLY) PO SCH ×2 (11:12→18:11)
[2023-02-12] MEDS: HYDROCHLOROTHIAZIDE PO SCH (18:11)
[2023-02-12] MEDS: TRIAMTERENE PO SCH (18:11)
[2023-02-12] MEDS: LORATADINE 10 MG PO SCH (18:12)
[2023-02-12] MEDS: Losartan 50 MG Tab (OWN SUPPLY) PO SCH (18:12)
[2023-02-12] MEDS: Acetaminophen 325 MG Tab PO PRN (21:07)
[2023-02-12] MEDS: EZETIMIBE 10 MG PO SCH (21:07)
[2023-02-13] MEDS: FLUTICASONE PROPIONATE NASBOTH SCH (11:12)
[2023-02-13] MEDS: Calcium Carbonate 750 MG Tab.Chew PO SCH (11:12)
[2023-02-13] MEDS: metFORMIN 500 MG Tab (OWN SUPPLY) PO SCH ×2 (11:13→18:22)
[2023-02-13] MEDS: Aspirin 325 MG Tab.EC PO SCH (11:15)
[2023-02-13] MEDS: Multivitamin Tab PO SCH (11:16)
[2023-02-13] MEDS: Cholecalciferol (Vitamin D3) 10 MCG Tab PO SCH (11:16)
[2023-02-13] MEDS: Sennosides/Docusate Sodium 50-8.6 MG Tab PO SCH ×2 (11:16→19:59)
[2023-02-13] MEDS: Losartan 50 MG Tab (OWN SUPPLY) PO SCH (18:21)
[2023-02-13] MEDS: TRIAMTERENE PO SCH (18:22)
[2023-02-13] MEDS: HYDROCHLOROTHIAZIDE PO SCH (18:22)
[2023-02-13] MEDS: LORATADINE 10 MG PO SCH (18:22)
[2023-02-13] MEDS: Acetaminophen 325 MG Tab PO PRN (20:51)
[2023-02-13] MEDS: EZETIMIBE 10 MG PO SCH (20:51)
[2023-02-14] MEDS: Aspirin 325 MG Tab.EC PO SCH (11:26)
[2023-02-14] MEDS: Sennosides/Docusate Sodium 50-8.6 MG Tab PO SCH ×2 (11:26→20:56)
[2023-02-14] MEDS: Cholecalciferol (Vitamin D3) 10 MCG Tab PO SCH (11:26)
[2023-02-14] MEDS: Multivitamin Tab PO SCH (11:26)
[2023-02-14] MEDS: Calcium Carbonate 750 MG Tab.Chew PO SCH (11:27)
[2023-02-14] MEDS: FLUTICASONE PROPIONATE NASBOTH SCH (11:27)
[2023-02-14] MEDS: metFORMIN 500 MG Tab (OWN SUPPLY) PO SCH ×2 (11:27→18:00)
[2023-02-14] MEDS: HYDROCHLOROTHIAZIDE PO SCH (17:59)
[2023-02-14] MEDS: TRIAMTERENE PO SCH (17:59)
[2023-02-14] MEDS: LORATADINE 10 MG PO SCH (18:00)
[2023-02-14] MEDS: Losartan 50 MG Tab (OWN SUPPLY) PO SCH (18:00)
[2023-02-14] MEDS: EZETIMIBE 10 MG PO SCH (20:56)
[2023-02-14] MEDS: Acetaminophen 325 MG Tab PO PRN (20:59)
[2023-02-15] MEDS: FLUTICASONE PROPIONATE NASBOTH SCH (11:06)
[2023-02-15] MEDS: Calcium Carbonate 750 MG Tab.Chew PO SCH (11:06)
[2023-02-15] MEDS: Multivitamin Tab PO SCH (11:07)
[2023-02-15] MEDS: Sennosides/Docusate Sodium 50-8.6 MG Tab PO SCH ×2 (11:07→21:35)
[2023-02-15] MEDS: metFORMIN 500 MG Tab (OWN SUPPLY) PO SCH ×2 (11:07→17:28)
[2023-02-15] MEDS: Cholecalciferol (Vitamin D3) 10 MCG Tab PO SCH (11:07)
[2023-02-15] MEDS: Aspirin 325 MG Tab.EC PO SCH (11:07)
[2023-02-15] MEDS: HYDROCHLOROTHIAZIDE PO SCH (17:29)
[2023-02-15] MEDS: TRIAMTERENE PO SCH (17:29)
[2023-02-15] MEDS: LORATADINE 10 MG PO SCH (17:29)
[2023-02-15] MEDS: Losartan 50 MG Tab (OWN SUPPLY) PO SCH (17:30)
[2023-02-15] MEDS: Acetaminophen 325 MG Tab PO PRN (21:35)
[2023-02-15] MEDS: EZETIMIBE 10 MG PO SCH (21:35)
[2023-02-16] MEDS: FLUTICASONE PROPIONATE NASBOTH SCH (11:47)
[2023-02-16] MEDS: Calcium Carbonate 750 MG Tab.Chew PO SCH (11:48)
[2023-02-16] MEDS: Sennosides/Docusate Sodium 50-8.6 MG Tab PO SCH ×2 (11:49→22:31)
[2023-02-16] MEDS: Aspirin 325 MG Tab.EC PO SCH (11:49)
[2023-02-16] MEDS: Cholecalciferol (Vitamin D3) 10 MCG Tab PO SCH (11:49)
[2023-02-16] MEDS: Multivitamin Tab PO SCH (11:49)
[2023-02-16] MEDS: metFORMIN 500 MG Tab (OWN SUPPLY) PO SCH ×2 (11:50→18:01)
[2023-02-16] MEDS: LORATADINE 10 MG PO SCH (17:59)
[2023-02-16] MEDS: TRIAMTERENE PO SCH (18:00)
[2023-02-16] MEDS: Losartan 50 MG Tab (OWN SUPPLY) PO SCH (18:00)
[2023-02-16] MEDS: HYDROCHLOROTHIAZIDE PO SCH (18:00)
[2023-02-16] MEDS: EZETIMIBE 10 MG PO SCH (22:32)
[2023-02-16] MEDS: Acetaminophen 325 MG Tab PO PRN (22:33)
[2023-02-17] MEDS: Multivitamin Tab PO SCH (11:04)
[2023-02-17] MEDS: Sennosides/Docusate Sodium 50-8.6 MG Tab PO SCH ×2 (11:04→20:11)
[2023-02-17] MEDS: Cholecalciferol (Vitamin D3) 10 MCG Tab PO SCH (11:04)
[2023-02-17] MEDS: Aspirin 325 MG Tab.EC PO SCH (11:04)
[2023-02-17] MEDS: FLUTICASONE PROPIONATE NASBOTH SCH (11:05)
[2023-02-17] MEDS: Calcium Carbonate 750 MG Tab.Chew PO SCH (11:05)
[2023-02-17] MEDS: metFORMIN 500 MG Tab (OWN SUPPLY) PO SCH ×2 (11:07→17:40)
[2023-02-17] MEDS: HYDROCHLOROTHIAZIDE PO SCH (17:40)
[2023-02-17] MEDS: TRIAMTERENE PO SCH (17:40)
[2023-02-17] MEDS: LORATADINE 10 MG PO SCH (17:41)
[2023-02-17] MEDS: Losartan 50 MG Tab (OWN SUPPLY) PO SCH (17:41)
[2023-02-17] MEDS: EZETIMIBE 10 MG PO SCH (20:15)
[2023-02-18] MEDS: FLUTICASONE PROPIONATE NASBOTH SCH (11:26)
[2023-02-18] MEDS: Calcium Carbonate 750 MG Tab.Chew PO SCH (11:26)
[2023-02-18] MEDS: metFORMIN 500 MG Tab (OWN SUPPLY) PO SCH ×2 (11:27→17:43)
[2023-02-18] MEDS: Multivitamin Tab PO SCH (11:27)
[2023-02-18] MEDS: Cholecalciferol (Vitamin D3) 10 MCG Tab PO SCH (11:28)
[2023-02-18] MEDS: Sennosides/Docusate Sodium 50-8.6 MG Tab PO SCH ×2 (11:28→20:15)
[2023-02-18] MEDS: Aspirin 325 MG Tab.EC PO SCH (11:28)
[2023-02-18] MEDS: TRIAMTERENE PO SCH (17:43)
[2023-02-18] MEDS: HYDROCHLOROTHIAZIDE PO SCH (17:43)
[2023-02-18] MEDS: Losartan 50 MG Tab (OWN SUPPLY) PO SCH (17:44)
[2023-02-18] MEDS: LORATADINE 10 MG PO SCH (17:44)
[2023-02-18] MEDS: EZETIMIBE 10 MG PO SCH (20:16)
[2023-02-19] MEDS: Aspirin 325 MG Tab.EC PO SCH (12:00)
[2023-02-19] MEDS: Cholecalciferol (Vitamin D3) 10 MCG Tab PO SCH (12:00)
[2023-02-19] MEDS: Sennosides/Docusate Sodium 50-8.6 MG Tab PO SCH ×2 (12:00→21:28)
[2023-02-19] MEDS: Multivitamin Tab PO SCH (12:00)
[2023-02-19] MEDS: FLUTICASONE PROPIONATE NASBOTH SCH (12:01)
[2023-02-19] MEDS: metFORMIN 500 MG Tab (OWN SUPPLY) PO SCH ×2 (12:02→17:31)
[2023-02-19] MEDS: Calcium Carbonate 750 MG Tab.Chew PO SCH (12:03)
[2023-02-19] MEDS: LORATADINE 10 MG PO SCH (17:30)
[2023-02-19] MEDS: Losartan 50 MG Tab (OWN SUPPLY) PO SCH (17:30)
[2023-02-19] MEDS: TRIAMTERENE PO SCH (17:31)
[2023-02-19] MEDS: HYDROCHLOROTHIAZIDE PO SCH (17:31)
[2023-02-19] MEDS: Acetaminophen 325 MG Tab PO PRN (21:28)
[2023-02-19] MEDS: EZETIMIBE 10 MG PO SCH (21:28)
[2023-02-20] MEDS: FLUTICASONE PROPIONATE NASBOTH SCH (12:07)
[2023-02-20] MEDS: Calcium Carbonate 750 MG Tab.Chew PO SCH (12:08)
[2023-02-20] MEDS: metFORMIN 500 MG Tab (OWN SUPPLY) PO SCH ×2 (12:08→18:44)
[2023-02-20] MEDS: Cholecalciferol (Vitamin D3) 10 MCG Tab PO SCH (12:09)
[2023-02-20] MEDS: Multivitamin Tab PO SCH (12:09)
[2023-02-20] MEDS: Aspirin 325 MG Tab.EC PO SCH (12:09)
[2023-02-20] MEDS: Sennosides/Docusate Sodium 50-8.6 MG Tab PO SCH ×2 (12:09→22:01)
[2023-02-20] MEDS: HYDROCHLOROTHIAZIDE PO SCH (18:45)
[2023-02-20] MEDS: LORATADINE 10 MG PO SCH (18:45)
[2023-02-20] MEDS: Losartan 50 MG Tab (OWN SUPPLY) PO SCH (18:45)
[2023-02-20] MEDS: TRIAMTERENE PO SCH (18:45)
[2023-02-20] MEDS: EZETIMIBE 10 MG PO SCH (22:01)
[2023-02-21] MEDS: Calcium Carbonate 750 MG Tab.Chew PO SCH (12:47)
[2023-02-21] MEDS: FLUTICASONE PROPIONATE NASBOTH SCH (12:47)
[2023-02-21] MEDS: metFORMIN 500 MG Tab (OWN SUPPLY) PO SCH ×2 (12:47→17:41)
[2023-02-21] MEDS: Aspirin 325 MG Tab.EC PO SCH (12:48)
[2023-02-21] MEDS: Sennosides/Docusate Sodium 50-8.6 MG Tab PO SCH ×2 (12:48→21:49)
[2023-02-21] MEDS: Multivitamin Tab PO SCH (12:48)
[2023-02-21] MEDS: Cholecalciferol (Vitamin D3) 10 MCG Tab PO SCH (12:48)
[2023-02-21] MEDS: LORATADINE 10 MG PO SCH (17:42)
[2023-02-21] MEDS: HYDROCHLOROTHIAZIDE PO SCH (17:42)
[2023-02-21] MEDS: TRIAMTERENE PO SCH (17:42)
[2023-02-21] MEDS: Losartan 50 MG Tab (OWN SUPPLY) PO SCH (17:42)
[2023-02-21] MEDS: EZETIMIBE 10 MG PO SCH (21:49)
[2023-02-22] MEDS: Aspirin 325 MG Tab.EC PO SCH (11:44)
[2023-02-22] MEDS: Multivitamin Tab PO SCH (11:44)
[2023-02-22] MEDS: Sennosides/Docusate Sodium 50-8.6 MG Tab PO SCH ×2 (11:44→20:29)
[2023-02-22] MEDS: Calcium Carbonate 750 MG Tab.Chew PO SCH (11:44)
[2023-02-22] MEDS: FLUTICASONE PROPIONATE NASBOTH SCH (11:44)
[2023-02-22] MEDS: Cholecalciferol (Vitamin D3) 10 MCG Tab PO SCH (11:44)
[2023-02-22] MEDS: metFORMIN 500 MG Tab (OWN SUPPLY) PO SCH ×2 (11:48→18:02)
[2023-02-22] MEDS: LORATADINE 10 MG PO SCH (18:01)
[2023-02-22] MEDS: Losartan 50 MG Tab (OWN SUPPLY) PO SCH (18:01)
[2023-02-22] MEDS: HYDROCHLOROTHIAZIDE PO SCH (18:02)
[2023-02-22] MEDS: TRIAMTERENE PO SCH (18:02)
[2023-02-22] MEDS: EZETIMIBE 10 MG PO SCH (20:29)
[2023-02-22] MEDS: Acetaminophen 325 MG Tab PO PRN (20:30)
[2023-02-23] MEDS: FLUTICASONE PROPIONATE NASBOTH SCH (11:32)
[2023-02-23] MEDS: metFORMIN 500 MG Tab (OWN SUPPLY) PO SCH ×2 (11:32→17:39)
[2023-02-23] MEDS: Cholecalciferol (Vitamin D3) 10 MCG Tab PO SCH (11:33)
[2023-02-23] MEDS: Aspirin 325 MG Tab.EC PO SCH (11:33)
[2023-02-23] MEDS: Multivitamin Tab PO SCH (11:33)
[2023-02-23] MEDS: Sennosides/Docusate Sodium 50-8.6 MG Tab PO SCH ×2 (11:34→20:30)
[2023-02-23] MEDS: Calcium Carbonate 750 MG Tab.Chew PO SCH (11:34)
[2023-02-23] MEDS: Losartan 50 MG Tab (OWN SUPPLY) PO SCH (17:40)
[2023-02-23] MEDS: TRIAMTERENE PO SCH (17:40)
[2023-02-23] MEDS: HYDROCHLOROTHIAZIDE PO SCH (17:40)
[2023-02-23] MEDS: LORATADINE 10 MG PO SCH (17:40)
[2023-02-23] MEDS: EZETIMIBE 10 MG PO SCH (20:31)
[2023-02-24] MEDS: Multivitamin Tab PO SCH (12:52)
[2023-02-24] MEDS: Aspirin 325 MG Tab.EC PO SCH (12:52)
[2023-02-24] MEDS: Cholecalciferol (Vitamin D3) 10 MCG Tab PO SCH (12:52)
[2023-02-24] MEDS: Sennosides/Docusate Sodium 50-8.6 MG Tab PO SCH ×2 (12:52→20:33)
[2023-02-24] MEDS: FLUTICASONE PROPIONATE NASBOTH SCH (12:53)
[2023-02-24] MEDS: metFORMIN 500 MG Tab (OWN SUPPLY) PO SCH ×2 (12:53→18:14)
[2023-02-24] MEDS: Calcium Carbonate 750 MG Tab.Chew PO SCH (13:03)
[2023-02-24] MEDS: HYDROCHLOROTHIAZIDE PO SCH (18:14)
[2023-02-24] MEDS: LORATADINE 10 MG PO SCH (18:14)
[2023-02-24] MEDS: Losartan 50 MG Tab (OWN SUPPLY) PO SCH (18:14)
[2023-02-24] MEDS: TRIAMTERENE PO SCH (18:14)
[2023-02-24] MEDS: EZETIMIBE 10 MG PO SCH (20:32)
[2023-02-25] MEDS: Cholecalciferol (Vitamin D3) 10 MCG Tab PO SCH (12:27)
[2023-02-25] MEDS: Aspirin 325 MG Tab.EC PO SCH (12:27)
[2023-02-25] MEDS: Sennosides/Docusate Sodium 50-8.6 MG Tab PO SCH ×2 (12:27→21:02)
[2023-02-25] MEDS: Calcium Carbonate 750 MG Tab.Chew PO SCH (12:27)
[2023-02-25] MEDS: metFORMIN 500 MG Tab (OWN SUPPLY) PO SCH ×2 (12:27→17:26)
[2023-02-25] MEDS: Multivitamin Tab PO SCH (12:27)
[2023-02-25] MEDS: FLUTICASONE PROPIONATE NASBOTH SCH (12:27)
[2023-02-25] MEDS: TRIAMTERENE PO SCH (17:26)
[2023-02-25] MEDS: Losartan 50 MG Tab (OWN SUPPLY) PO SCH (17:26)
[2023-02-25] MEDS: HYDROCHLOROTHIAZIDE PO SCH (17:26)
[2023-02-25] MEDS: LORATADINE 10 MG PO SCH (17:26)
[2023-02-25] MEDS: EZETIMIBE 10 MG PO SCH (21:08)
[2023-02-25] MEDS: Acetaminophen 325 MG Tab PO PRN (21:09)
[2023-02-26] MEDS: metFORMIN 500 MG Tab (OWN SUPPLY) PO SCH ×2 (12:17→17:59)
[2023-02-26] MEDS: Calcium Carbonate 750 MG Tab.Chew PO SCH (12:17)
[2023-02-26] MEDS: FLUTICASONE PROPIONATE NASBOTH SCH (12:17)
[2023-02-26] MEDS: Aspirin 325 MG Tab.EC PO SCH (12:18)
[2023-02-26] MEDS: Cholecalciferol (Vitamin D3) 10 MCG Tab PO SCH (12:18)
[2023-02-26] MEDS: Multivitamin Tab PO SCH (12:18)
[2023-02-26] MEDS: Sennosides/Docusate Sodium 50-8.6 MG Tab PO SCH ×2 (12:18→20:57)
[2023-02-26] MEDS: Losartan 50 MG Tab (OWN SUPPLY) PO SCH (17:59)
[2023-02-26] MEDS: LORATADINE 10 MG PO SCH (18:00)
[2023-02-26] MEDS: HYDROCHLOROTHIAZIDE PO SCH (18:00)
[2023-02-26] MEDS: TRIAMTERENE PO SCH (18:00)
[2023-02-26] MEDS: EZETIMIBE 10 MG PO SCH (20:57)
[2023-02-26] MEDS: Acetaminophen 325 MG Tab PO PRN (20:58)
[2023-02-27] MEDS: Aspirin 325 MG Tab.EC PO SCH (12:21)
[2023-02-27] MEDS: Sennosides/Docusate Sodium 50-8.6 MG Tab PO SCH ×2 (12:21→21:37)
[2023-02-27] MEDS: Multivitamin Tab PO SCH (12:21)
[2023-02-27] MEDS: Cholecalciferol (Vitamin D3) 10 MCG Tab PO SCH (12:21)
[2023-02-27] MEDS: metFORMIN 500 MG Tab (OWN SUPPLY) PO SCH ×2 (12:22→18:27)
[2023-02-27] MEDS: FLUTICASONE PROPIONATE NASBOTH SCH (12:23)
[2023-02-27] MEDS: Calcium Carbonate 750 MG Tab.Chew PO SCH (12:23)
[2023-02-27] MEDS: LORATADINE 10 MG PO SCH (18:26)
[2023-02-27] MEDS: TRIAMTERENE PO SCH (18:27)
[2023-02-27] MEDS: HYDROCHLOROTHIAZIDE PO SCH (18:27)
[2023-02-27] MEDS: Losartan 50 MG Tab (OWN SUPPLY) PO SCH (18:28)
[2023-02-27] MEDS: Acetaminophen 325 MG Tab PO PRN (21:36)
[2023-02-27] MEDS: EZETIMIBE 10 MG PO SCH (21:37)
[2023-02-28] MEDS: metFORMIN 500 MG Tab (OWN SUPPLY) PO SCH ×2 (11:16→18:24)
[2023-02-28] MEDS: Calcium Carbonate 750 MG Tab.Chew PO SCH (11:16)
[2023-02-28] MEDS: FLUTICASONE PROPIONATE NASBOTH SCH (11:17)
[2023-02-28] MEDS: Aspirin 325 MG Tab.EC PO SCH (11:19)
[2023-02-28] MEDS: Cholecalciferol (Vitamin D3) 10 MCG Tab PO SCH (11:19)
[2023-02-28] MEDS: Sennosides/Docusate Sodium 50-8.6 MG Tab PO SCH ×2 (11:19→21:51)
[2023-02-28] MEDS: Multivitamin Tab PO SCH (11:19)
[2023-02-28] MEDS: Losartan 50 MG Tab (OWN SUPPLY) PO SCH (18:24)
[2023-02-28] MEDS: LORATADINE 10 MG PO SCH (18:24)
[2023-02-28] MEDS: TRIAMTERENE PO SCH (18:25)
[2023-02-28] MEDS: HYDROCHLOROTHIAZIDE PO SCH (18:25)
[2023-02-28] MEDS: EZETIMIBE 10 MG PO SCH (21:50)
[2023-02-28] MEDS: Acetaminophen 325 MG Tab PO PRN (21:51)
[2023-03-01] MEDS: Cholecalciferol (Vitamin D3) 10 MCG Tab PO SCH (11:36)
[2023-03-01] MEDS: metFORMIN 500 MG Tab (OWN SUPPLY) PO SCH ×2 (11:36→17:46)
[2023-03-01] MEDS: Sennosides/Docusate Sodium 50-8.6 MG Tab PO SCH ×2 (11:36→20:32)
[2023-03-01] MEDS: Calcium Carbonate 750 MG Tab.Chew PO SCH (11:36)
[2023-03-01] MEDS: Aspirin 325 MG Tab.EC PO SCH (11:36)
[2023-03-01] MEDS: FLUTICASONE PROPIONATE NASBOTH SCH (11:37)
[2023-03-01] MEDS: Multivitamin Tab PO SCH (11:39)
[2023-03-01] MEDS: LORATADINE 10 MG PO SCH (17:46)
[2023-03-01] MEDS: HYDROCHLOROTHIAZIDE PO SCH (17:46)
[2023-03-01] MEDS: TRIAMTERENE PO SCH (17:46)
[2023-03-01] MEDS: Losartan 50 MG Tab (OWN SUPPLY) PO SCH (17:46)
[2023-03-01] MEDS: EZETIMIBE 10 MG PO SCH (20:32)
[2023-03-02] MEDS: metFORMIN 500 MG Tab (OWN SUPPLY) PO SCH (12:30)
[2023-03-02] MEDS: Cholecalciferol (Vitamin D3) 10 MCG Tab PO SCH (12:31)
[2023-03-02] MEDS: Sennosides/Docusate Sodium 50-8.6 MG Tab PO SCH (12:31)
[2023-03-02] MEDS: FLUTICASONE PROPIONATE NASBOTH SCH (12:31)
[2023-03-02] MEDS: Aspirin 325 MG Tab.EC PO SCH (12:31)
[2023-03-02] MEDS: Calcium Carbonate 750 MG Tab.Chew PO SCH (12:31)
[2023-03-02] MEDS: Multivitamin Tab PO SCH (12:32)
== END 2023-03-02 15:25 | disposition home health service (06) | DRG 948 ==
LOC: VM.MS 14:17
PROVIDERS: ADMIT Nurse Practitioner Family; ATTEND Nurse Practitioner Family
DX: R53.81 Other malaise (principal); S82.031D Displaced transverse fracture of right patella, subsequent encounter for closed fracture with routine healing; F70 Mild intellectual disabilities; E78.00 Pure hypercholesterolemia, unspecified; I10 Essential (primary) hypertension; E87.6 Hypokalemia; E78.5 Hyperlipidemia, unspecified; E66.01 Morbid (severe) obesity due to excess calories; J30.9 Allergic rhinitis, unspecified; R73.01 Impaired fasting glucose; K59.00 Constipation, unspecified; G71.039 Limb girdle muscular dystrophy, unspecified; W18.30XD Fall on same level, unspecified, subsequent encounter; Z79.899 Other long term (current) drug therapy; Z79.84 Long term (current) use of oral hypoglycemic drugs; Z79.82 Long term (current) use of aspirin; Z98.890 Other specified postprocedural states
CPT/HCPCS: 95851-GO; 97110-GP; 97116-GP; 97161-GP; 97165-GO; 97530-GP; 97535-GO; A9270-GY